=== PATIENT | male | born 1940 | race Caucasian/White ===

== ENCOUNTER 2018-01-22 05:41 | Day surgery (SDC) | payer BC ==
[2018-01-22] MEDS ORDERED: Midazolam 1 MG/ML 2 ML SDV IV ONE ×4 (05:42→06:55)
[2018-01-22] MEDS ORDERED: fentaNYL 100 MCG/2 ML SDV IV ONE ×3 (05:42→06:53)
[2018-01-22] MEDS ORDERED: Midazolam 1 MG/ML 2 ML SDV ONE (06:31)
[2018-01-22] MEDS ORDERED: fentaNYL 100 MCG/2 ML SDV ONE (06:32)
[2018-01-22] MEDS ORDERED: Dextrose 5%-0.45% NaCl 1,000 ML IV SCH (07:00)
--- NOTE | 2018-01-22 12:30 | OR ---
DATE: 01/22/2018 PREOPERATIVE DIAGNOSES: Change in bowel function and personal history of prior colon polyps. POSTOPERATIVE DIAGNOSES: Change in bowel function and personal history of prior colon polyps. PROCEDURE: Total colonoscopy. ANESTHESIA: Conscious sedation with IV Versed and fentanyl. SPECIMEN: None. OPERATIVE FINDINGS: Sigmoid diverticulosis. RECOMMENDATION: Followup colonoscopy for symptoms only. INDICATION FOR PROCEDURE: This 77-year-old male had a colonoscopy about 10 years ago by his history, removed polyps. He also has bowel function change, alternating constipation and diarrhea. PROCEDURE IN DETAIL: After adequate preparation, a colonoscope was inserted into the rectum. This was easily passed all the way to the cecum. Confirmation of the cecum was made by visualization of the ileocecal valve and palpation in the right lower quadrant. The bowel prep was excellent. On withdrawal of the scope, a good examination of the colon was accomplished. The only abnormality noted was moderate sigmoid diverticulosis. Rectal and anal examinations are also normal. Air was suctioned from the colon, and the scope was removed. [facility] /[id number]
== END 2018-01-22 09:05 | disposition home or self-care (01) ==
LOC: DL.ENDO 05:41
PROVIDERS: ATTEND Surgery
DX: K59.00 Constipation, unspecified (principal); R19.7 Diarrhea, unspecified; K57.30 Diverticulosis of large intestine without perforation or abscess without bleeding; Z86.010 Personal history of colon polyps
CPT/HCPCS: 45378; J2250; J3010; J7042

== ENCOUNTER 2021-10-19 12:43 | Emergency (ER) | payer BC | END 2021-10-19 15:12 | disposition home or self-care (01) | LOC: DL.ED 12:43 | DX: S22.089A Unspecified fracture of T11-T12 vertebra, initial encounter for closed fracture (principal); I10 Essential (primary) hypertension; F17.210 Nicotine dependence, cigarettes, uncomplicated; Z90.49 Acquired absence of other specified parts of digestive tract; Z88.5 Allergy status to narcotic agent; Z79.899 Other long term (current) drug therapy; V80.010A Animal-rider injured by fall from or being thrown from horse in noncollision accident, initial encounter | CPT/HCPCS: 70450; 72125; 72128; 72131; 72192; 99283-25; 99284 ==